=== PATIENT | female | born 1935 | race Asian ===

== ENCOUNTER → 2017-07-10 | Outpatient (CLI) | payer MEDICARE, OTHER ==
[~2017-07-10] MED LIST: AMLO5TAB66 PO; ASPI81TA2 PO; ENAL10TA PO; METO-325 PO; SIMV20TA6 PO
== END | disposition home or self-care (01) ==
LOC: RADMN 16:06
PROVIDERS: ATTEND Family Medicine
DX: I25.10 Atherosclerotic heart disease of native coronary artery without angina pectoris (principal); I70.0 Atherosclerosis of aorta; M77.8 Other enthesopathies, not elsewhere classified
CPT/HCPCS: 71020

== ENCOUNTER 2019-03-09 13:12 | Inpatient (IN) | payer MEDICARE, OTHER ==
[~2019-03-09] VITALS: Ht 157.5 cm; Wt 59.7 kg
[~2019-03-09 13:12] MED LIST changes: +ASPI-1198 PO; -ASPI81TA2 PO; -METO-325 PO; +METO-558 PO
[2019-03-09 13:31] LABS: GLUCOSE,POINT OF CARE 207 MG/DL (70-110)
[2019-03-09 14:38] LABS: BASOPHILS % (AUTO) 0.6 % (0.0-2.0); EOSINOPHILS % (AUTO) 0.2 % (1.0-6.0); HEMATOCRIT 44.5 % (36-46); HEMOGLOBIN 14.7 g/dL (12.0-16.0); LYMPHOCYTES # (AUTO) 1.1 K/uL (1.0-4.8); LYMPHOCYTES % (AUTO) 8.5 % (22.0-44.0); MEAN CORPUSCULAR HGB CONC 33.1 G/dL (31.0-37.0); MEAN CORPUSCULAR VOLUME 94 fL (80-100); MONOCYTES # (AUTO) 0.6 K/uL (0.1-1.0); MONOCYTES % (AUTO) 4.5 % (2.0-9.0); NEUTROPHILS # (AUTO) 11.3 K/uL (1.8-7.7); PLATELET COUNT (AUTO) 219 K/uL (150-450); RED BLOOD CELL COUNT(AUTO) 4.75 MIL/uL (4.00-5.20); RED CELL DISTRIBUTION WIDTH 13.1 % (11.5-14.5)
[2019-03-09 14:41] LABS: NEUTROPHILS % (AUTO) 86.2 % (40.0-70.0)
[2019-03-09 15:26] LABS: CALCIUM, TOTAL 9.3 mg/dL (8.8-10.5); CREATININE 0.99 mg/dL (0.60-1.30)
[2019-03-09 15:32] LABS: ALBUMIN 4.1 g/dL (3.4-5.0); BILIRUBIN,TOTAL 0.7 mg/dL (0.1-1.0); TOTAL PROTEIN, SERUM 8.2 g/dL (6.4-8.2)
[2019-03-09] MEDS ORDERED: DILTIAZEM HCL 5 MG/ML 5 ML VIAL IVP ONE (16:45)
[2019-03-09] MEDS ORDERED: ASPIRIN 81 MG CHEWABLE TABLET PO ONE (16:45)
[2019-03-09] MEDS ORDERED: ACETAMINOPHEN 325 MG TABLET PO PRN ×2 (17:00→22:30)
[2019-03-09] MEDS ORDERED: ONDANSETRON HCL 4 MG/2 ML VIAL IVP PRN ×2 (17:00→22:30)
[2019-03-09 17:45] VITALS: BP 133/67
[2019-03-09 20:12] VITALS: BP 149/84
[2019-03-09] MEDS ORDERED: ALBUTEROL SULFATE 2.5 MG/0.5 ML NEB SOLUTION NEB PRN (22:30)
[2019-03-09] MEDS ORDERED: IPRATROPIUM BROMIDE 0.5 MG/2.5 ML NEB SOLUTION NEB PRN (22:30)
[2019-03-09] MEDS ORDERED: 0.9% SODIUM CHLORIDE 10 ML SYRINGE IVP PRN (22:30)
[2019-03-09] MEDS ORDERED: ZOLPIDEM TARTRATE 5 MG TABLET PO PRN (22:30)
[2019-03-09 23:54] VITALS: BP 147/83
[2019-03-10 04:50] VITALS: BP 117/59
[2019-03-10 05:23] LABS: APPEARANCE,URINE CLEAR (CLEAR); BILIRUBIN,URINE NEGATIVE (NEGATIVE); GLUCOSE, URINE (UA) NEGATIVE (NEGATIVE); KETONES,URINE NEGATIVE (NEGATIVE); LEUKOCYTE ESTERASE ,URINE NEGATIVE (NEGATIVE); NITRATE,URINE NEGATIVE (NEGATIVE); OCCULT BLOOD,URINE TRACE (NEGATIVE); PROTEIN,URINE NEGATIVE (NEGATIVE); UROBILINOGEN,URINE 0.2 mg/dL (<=1.0)
[2019-03-10 05:33] LABS: BACTERIA,URINE Few /HPF (None Seen)
[2019-03-10 05:34] LABS: SQUAMOUS EPITHELIAL CELL,UR Rare /LPF (None Seen)
[2019-03-10 05:50] LABS: BASOPHILS % (AUTO) 0.6 % (0.0-2.0); EOSINOPHILS % (AUTO) 0.9 % (1.0-6.0); HEMOGLOBIN 14.3 g/dL (12.0-16.0); LYMPHOCYTES # (AUTO) 2.3 K/uL (1.0-4.8); LYMPHOCYTES % (AUTO) 26.8 % (22.0-44.0); MEAN CORPUSCULAR HEMOGLOBIN 31.6 pg (26.0-34.0); MEAN CORPUSCULAR HGB CONC 34.1 G/dL (31.0-37.0); MEAN CORPUSCULAR VOLUME 93 fL (80-100); MONOCYTES # (AUTO) 0.9 K/uL (0.1-1.0); NEUTROPHILS # (AUTO) 5.4 K/uL (1.8-7.7); NEUTROPHILS % (AUTO) 61.7 % (40.0-70.0); PLATELET COUNT (AUTO) 210 K/uL (150-450); RED BLOOD CELL COUNT(AUTO) 4.54 MIL/uL (4.00-5.20); RED CELL DISTRIBUTION WIDTH 12.8 % (11.5-14.5)
[2019-03-10 06:21] LABS: ANION GAP 10 mmol/L (8-16); CARBON DIOXIDE 27 mmol/L (22-29); CHLORIDE 103 mmol/L (98-107); CREATININE 0.87 mg/dL (0.60-1.30); GLUCOSE,RANDOM 117 mg/dL (70-110); POTASSIUM 3.8 mmol/L (3.5-5.1); SODIUM SERUM 140 mmol/L (136-145); UREA NITROGEN, BLOOD 11 mg/dL (7-18)
[2019-03-10 06:26] LABS: GLOMERULAR FILTR. RATE CALC > 60 mL/min (>60)
[2019-03-10 07:43] VITALS: BP 115/65
[2019-03-10] MEDS: SIMVASTATIN 20 MG TABLET PO SCH (08:35)
[2019-03-10] MEDS: PANTOPRAZOLE SODIUM 40 MG DR TABLET PO SCH (08:35)
[2019-03-10] MEDS: METOPROLOL SUCCINATE 50 MG ER TABLET PO SCH (08:35)
[2019-03-10] MEDS: APIXABAN 2.5 MG TABLET PO SCH ×2 (08:35→19:46)
[2019-03-10] MEDS: ENALAPRIL MALEATE 10 MG TABLET PO SCH (08:35)
[2019-03-10] MEDS: ASPIRIN 81 MG CHEWABLE TABLET PO SCH (08:35)
[2019-03-10] MEDS: AmLODIPine BESYLATE 5 MG TABLET PO SCH (08:35)
[2019-03-10] MEDS: IPRATROPIUM BROMIDE 0.5 MG/2.5 ML NEB SOLUTION NEB SCH ×3 (09:15→20:20)
[2019-03-10] MEDS: ALBUTEROL SULFATE 2.5 MG/0.5 ML NEB SOLUTION NEB SCH ×3 (09:15→20:20)
[2019-03-10 15:28] VITALS: BP 111/54
[2019-03-10 20:30] VITALS: BP 124/57
[2019-03-10 23:50] VITALS: BP 140/71
[2019-03-11] MEDS: ALBUTEROL SULFATE 2.5 MG/0.5 ML NEB SOLUTION NEB SCH ×4 (02:25→19:18)
[2019-03-11] MEDS: IPRATROPIUM BROMIDE 0.5 MG/2.5 ML NEB SOLUTION NEB SCH ×4 (02:25→19:18)
[2019-03-11 04:38] VITALS: BP 125/69
[2019-03-11 06:08] LABS: BASOPHILS % (AUTO) 0.4 % (0.0-2.0); EOSINOPHILS % (AUTO) 1.2 % (1.0-6.0); HEMATOCRIT 40.4 % (36-46); HEMOGLOBIN 13.9 g/dL (12.0-16.0); LYMPHOCYTES # (AUTO) 2.1 K/uL (1.0-4.8); MEAN CORPUSCULAR HEMOGLOBIN 31.7 pg (26.0-34.0); MEAN CORPUSCULAR HGB CONC 34.4 G/dL (31.0-37.0); MEAN CORPUSCULAR VOLUME 92 fL (80-100); MONOCYTES # (AUTO) 0.8 K/uL (0.1-1.0); MONOCYTES % (AUTO) 10.1 % (2.0-9.0); NEUTROPHILS # (AUTO) 5.3 K/uL (1.8-7.7); NEUTROPHILS % (AUTO) 63.3 % (40.0-70.0); PLATELET COUNT (AUTO) 197 K/uL (150-450); RED BLOOD CELL COUNT(AUTO) 4.38 MIL/uL (4.00-5.20); RED CELL DISTRIBUTION WIDTH 13.2 % (11.5-14.5)
[2019-03-11 06:40] LABS: ALBUMIN 3.7 g/dL (3.4-5.0); CALCIUM, TOTAL 9.2 mg/dL (8.8-10.5); CREATININE 0.95 mg/dL (0.60-1.30); MAGNESIUM 2.1 mg/dL (1.80-2.40); POTASSIUM 3.9 mmol/L (3.5-5.1)
[2019-03-11 08:03] VITALS: BP 126/60
[2019-03-11] MEDS: SIMVASTATIN 20 MG TABLET PO SCH (08:31)
[2019-03-11] MEDS: ENALAPRIL MALEATE 10 MG TABLET PO SCH (08:31)
[2019-03-11] MEDS: ASPIRIN 81 MG CHEWABLE TABLET PO SCH (08:31)
[2019-03-11] MEDS: METOPROLOL SUCCINATE 50 MG ER TABLET PO SCH ×2 (08:31→20:30)
[2019-03-11] MEDS: APIXABAN 2.5 MG TABLET PO SCH (08:32)
[2019-03-11] MEDS: AmLODIPine BESYLATE 5 MG TABLET PO SCH (08:32)
[2019-03-11] MEDS: PANTOPRAZOLE SODIUM 40 MG DR TABLET PO SCH (08:32)
[2019-03-11 11:27] VITALS: BP 111/57
[2019-03-11 15:48] VITALS: BP 117/57
[2019-03-11 19:47] VITALS: BP 119/62
[2019-03-11 23:54] VITALS: BP 109/63
[2019-03-12] MEDS: ALBUTEROL SULFATE 2.5 MG/0.5 ML NEB SOLUTION NEB SCH ×3 (01:13→14:53)
[2019-03-12] MEDS: IPRATROPIUM BROMIDE 0.5 MG/2.5 ML NEB SOLUTION NEB SCH ×3 (01:13→14:53)
[2019-03-12 04:56] VITALS: BP 105/54
[2019-03-12 06:05] LABS: BASOPHILS % (AUTO) 0.5 % (0.0-2.0); EOSINOPHILS % (AUTO) 2.4 % (1.0-6.0); HEMATOCRIT 43.9 % (36-46); HEMOGLOBIN 14.8 g/dL (12.0-16.0); LYMPHOCYTES # (AUTO) 2.5 K/uL (1.0-4.8); LYMPHOCYTES % (AUTO) 29.4 % (22.0-44.0); MEAN CORPUSCULAR HEMOGLOBIN 31.2 pg (26.0-34.0); MEAN CORPUSCULAR HGB CONC 33.8 G/dL (31.0-37.0); MEAN CORPUSCULAR VOLUME 92 fL (80-100); MONOCYTES # (AUTO) 0.8 K/uL (0.1-1.0); MONOCYTES % (AUTO) 9.9 % (2.0-9.0); NEUTROPHILS # (AUTO) 4.9 K/uL (1.8-7.7); NEUTROPHILS % (AUTO) 57.8 % (40.0-70.0); PLATELET COUNT (AUTO) 212 K/uL (150-450); RED BLOOD CELL COUNT(AUTO) 4.76 MIL/uL (4.00-5.20); RED CELL DISTRIBUTION WIDTH 12.7 % (11.5-14.5)
[2019-03-12 06:22] LABS: ALBUMIN 3.6 g/dL (3.4-5.0); BILIRUBIN,TOTAL 0.8 mg/dL (0.1-1.0); CALCIUM, TOTAL 9.2 mg/dL (8.8-10.5); CREATININE 0.95 mg/dL (0.60-1.30); MAGNESIUM 2.1 mg/dL (1.80-2.40); POTASSIUM 3.7 mmol/L (3.5-5.1); TOTAL PROTEIN, SERUM 7.4 g/dL (6.4-8.2)
[2019-03-12 07:59] VITALS: BP 102/70
[2019-03-12] MEDS ORDERED: AmLODIPine BESYLATE 2.5 MG TABLET PO SCH (09:00)
[2019-03-12] MEDS ORDERED: APIXABAN 2.5 MG TABLET PO SCH (09:00)
[2019-03-12] MEDS: ASPIRIN 81 MG CHEWABLE TABLET PO SCH (09:18)
[2019-03-12] MEDS: PANTOPRAZOLE SODIUM 40 MG DR TABLET PO SCH (09:18)
[2019-03-12] MEDS: SIMVASTATIN 20 MG TABLET PO SCH (09:18)
[2019-03-12] MEDS: METOPROLOL SUCCINATE 50 MG ER TABLET PO SCH (09:18)
[2019-03-12 11:33] VITALS: BP 109/58
[2019-03-12 15:55] VITALS: BP 106/63
[2019-03-12] MEDS ORDERED: APIX2.5T PO (17:20)
[2019-03-12] MEDS ORDERED: AMLO2.5T4 PO (17:22)
== END 2019-03-12 18:20 | disposition home or self-care (01) | DRG 311 ==
LOC: EMS 13:13 → 5S 17:11
PROVIDERS: ADMIT Internal Medicine; ATTEND Internal Medicine
DX: I20.0 Unstable angina (principal); I48.91 Unspecified atrial fibrillation; E78.00 Pure hypercholesterolemia, unspecified; I10 Essential (primary) hypertension; E78.5 Hyperlipidemia, unspecified; M54.2 Cervicalgia; R74.8 Abnormal levels of other serum enzymes; Z79.82 Long term (current) use of aspirin; Z79.899 Other long term (current) drug therapy
CPT/HCPCS: 70450; 83735; 87086; 93005; 93306; 94640; 99291; G0378; J3490

== ENCOUNTER → 2019-06-08 | Outpatient (CLI) | payer MEDICARE, OTHER ==
[~2019-06-08] MED LIST changes: +AMLO2.5T4 PO; -AMLO5TAB66 PO; +APIX2.5T PO; -ENAL10TA PO
== END | disposition home or self-care (01) ==
LOC: RADPV 09:04
PROVIDERS: ATTEND Family Medicine
DX: J44.9 Chronic obstructive pulmonary disease, unspecified (principal); I10 Essential (primary) hypertension; I70.0 Atherosclerosis of aorta; E78.5 Hyperlipidemia, unspecified